=== PATIENT | male | born 1960 | race Caucasian/White ===

== ENCOUNTER 2016-11-14 18:07 | Emergency (ER) | payer OTHER ==
[2013-10-03 23:03] VITALS: BMI 28.4
[~2016-11-14 18:07] MED LIST: ECOTRIN325 MG PO; LISINOPRIL10 MG PO; NORVASC5 MG PO
== END 2016-11-14 20:08 | disposition home or self-care (01) ==
LOC: D.ER 18:07
DX: S16.1XXA Strain of muscle, fascia and tendon at neck level, initial encounter (principal); W09.1XXA Fall from playground swing, initial encounter; Y93.89 Activity, other specified; Y92.019 Unspecified place in single-family (private) house as the place of occurrence of the external cause